=== PATIENT | female | born 1960 | race Caucasian/White ===

== ENCOUNTER 2025-01-31 09:36 | Outpatient (REF) | payer OTHER, SELFPAY | END 2025-01-31 09:37 | disposition home or self-care (01) | LOC: HO.LNP 09:36 | PROVIDERS: Visit Provider Obstetrics & Gynecology | DX: Z01.419 Encounter for gynecological examination (general) (routine) without abnormal findings (principal); Z11.51 Encounter for screening for human papillomavirus (HPV); N95.0 Postmenopausal bleeding; N64.4 Mastodynia; Z98.51 Tubal ligation status | CPT/HCPCS: 87626; 88175; 99202 ==

== ENCOUNTER 2025-01-31 09:36 | Outpatient (AMB) | payer OTHER, SELFPAY ==
[2025-01-31 09:40] VITALS: BP 102/70; BMI 25.4
--- NOTE | 2025-01-31 09:40 | A.OFFVIS_ITS ---
Vital Signs 01/31/25 09:40 Height 5 ft 2 in Weight 139 lb BMI 25.4 BP 102/70 Intake Visit Reasons: PMB Intake Note: patient experiencing breast pain Property Supervisor Required: No Business Representative: Business Representative Present (christina/ paty) Accompanied by: Family/Other Allergies Penicillins (PENICILLINS) Allergy (Severe, Verified 01/31/25 09:41) ORAL SWELLING codeine (CODEINE) Allergy (Intermediate, Verified 01/31/25 09:41) VOMITING HPI Comments Details: Presenting complaining of few episodes of postmenopausal spotting asked 1 0 six- month ago in addition the patient is complaining of right breast pain, no additional concerns. Last Pap smear was few years ago no records available according to patient was negative Last mammogram was in 2022 according to patient was negative, room records available [facility] Medical History Arthritis Pancreatitis COPD (chronic obstructive pulmonary disease) Surgical History History of tubal ligation Hx of tonsillectomy Family History Sister Hypertension Mother Hypertension Pancreatic cancer Father Throat cancer Lung cancer Brother Throat cancer Social History Household Members: Other Household Members Other:: roomate Housing: Apartment Alcohol intake: current Comment: 2/3 glasses of wine a month Patient Tobacco Use Status: Former Tobacco user Female Reproductive History Menstrual Age of Menarche: 15 Review of Systems Const All systems reviewed & are unremarkable except as noted in HPI and below Card Reports as per HPI Resp Reports as per HPI GI Reports as per HPI and Reports no additional complaints Reports as per HPI Physical Exam Vital Signs: Last Vital Signs BP 102/70 01/31/25 09:40 BMI result Body Mass Index 25.4 Const General: cooperative, healthy appearing and comfortable Chest Chest palpation & inspection: normal inspection of the chest and normal palpation of entire chest wall Breast/axilla inspection: normal inspection of the breasts and normal inspection of the axillae Breast/axilla palpation: normal palpation of the breasts (Left breast within normal, right breast 10:00 5 cm from the nipple tender), normal palpation of the axillae and no axillary lymphadenopathy Resp Effort & Inspection: normal respiratory effort Auscultation: clear to auscultation bilaterally Percussion: percussion normal Cardio Palpation: normal PMI Rate: regular rate Rhythm: regular rhythm Heart sounds: no murmurs and no rubs Peripheral pulses: Peripheral pulses 2+ throughout GI Inspection: Yes normal to inspection Palpation (GI): Soft to palpation, nontender, no guarding, not rigid and No hepatosplenomegaly present Percussion: Yes normal to percussion Auscultation: normal bowel sounds Rectal Exam - Female: deferred General: Yes bladder normal to palpation External Female Exam: No lesion Speculum Exam - Vagina: normal appearance of the vagina, normal palpation, normal vaginal discharge and not erythematous Speculum Exam - Cervix: normal appearance of the cervix and normal palpation Bimanual exam- vagina & uterus: normal bimanual exam, normal palpation, uterine size normal, bladder normal to palpation, consistency normal and normal palpation Bimanual Exam- Adnexa, other: normal adnexae, no masses and no tenderness Assessment & Plan Assessment & Plan (1) Postmenopausal bleeding: Code(s): N95.0 - Postmenopausal bleeding Category: Medical Plan: Discussed with the patient the differential diagnosis of post menopausal bleeding with normal pelvic exam including but not limited to, endometrial hyperplasia, cancer, polyps and other causes; recommended ultrasound to measure the endometrial stripe; discussed with the patient that if the endometrial thickness is 4 mm or less the negative predictive value of endometrial pathology is 99%, otherwise If endometrial thickness is more than 4 mm will proceed with endometrial sampling versus hysteroscopy D&C polypectomy depending on the ultrasound findings. Instructed the patient to schedule an ultrasound with a follow-up appointment in 2 weeks. All questions answered, the patient verbalized understanding and agreed with the plan. This note was generated with a voice recognition program. Some errors may have been overlooked during the review of this note. Sometimes these errors may affect the content or meaning of a given sentence. (2) Breast pain, right: Comment: right breast 10:00, 5 cm from the nipple tender Code(s): N64.4 - Mastodynia Category: Medical Plan: Discussed with the patient the finding on Breast exam (breast tenderness at 10:00, 5 cm from the nipple) .The differential diagnosis includes but not limited to lump/cyst/pre cancer/cancer or dense breast tissue. The work up includes right breast US and bilateral diagnostic mammogram and referred the patient for surgical breast consult. Orders: Orders MM tomosynthesis diagnostic BI Today N64.4 - Mastodynia Pap Smear Today Z01.419 - Encounter for gynecological examination (general) (routine) without abnormal findings US breast RT limited Today N64.4 - Mastodynia HPV High risk Today Z01.419 - Encounter for gynecological examination (general) (routine) without abnormal findings US pelvic and transvaginal Today N95.0 - Postmenopausal bleeding Referrals General Surgery Referral N64.4 - Mastodynia Coding Level of Care Code New Pt Level 3 (09018) Diagnoses Postmenopausal bleeding N95.0 Breast pain, right N64.4
--- OUTSIDE RECORDS SUMMARY | 2025-01-31 10:11 | XMS_ITS ---
Author Name [facility] Organization Unknown Care Team Organization Name Specialty Phone Email Start Date End Da te [facility] Primary Care 10/21/2022 02/02/2024 [facility] Y[facility] Primary Care 04/23/2022 02/02/2024
--- OUTSIDE RECORDS SUMMARY | 2025-01-31 10:12 | XMS_ITS | Clinical Summary ---
Author Organization [address] Address [address] [place] [phone] Phone Care Team Providers Care Sword Swallower Name Role Phone Eduardo Smith MD Primary Care Provider Allergies Active Allergy Reactions Criticality Noted Date Comments Codeine 02/12/2016 Up set stomach Penicillin G 02/12/2016 Tongue swelling Medications cholecalciferol (VITAMIN D-3) 25 mcg (1,000 unit) capsule Take by mouth daily. 3 tabs Active cyanocobalamin (VITAMIN B-12) 100 mcg tablet Take 0.5 tablets (50 mcg total) by mouth 1 (one) time each day. Active buPROPion (ZYBAN) 150 mg 12 hr tablet Take 1 tablet (150 mg total) by mouth 2 (two) times a day. Do not crush, chew, or split. 60 each 2 05/10/20 24 Active umeclidinium-vilan teroL (ANORO ELLIPTA) 62.5-25 mcg/actuation inhaler Inhale 1 puff by mouth 1 (one) time each day. 1 each 11 05/10/20 24 Active ondansetron ODT (ZOFRAN-ODT) 8 mg disintegrating tablet Dissolve 1 tablet (8 mg total) on top of the tongue every 8 (eight) hours if needed for nausea or vomiting. 30 tablet 3 05/10/20 24 Active albuterol HFA (PROAIR HFA ; PROVENTIL HFA ; VENTOLIN HFA) 90 mcg/actuation inhalerIndications :Routine general medical examination at a health care facility,Encounter for screening mammogram for malignant neoplasm of breast,Arthritis,C hronic obstructive pulmonary disease, unspecified COPD type (CMS/HCC V24, CMS/HCC V28),Tobacco use disorder,Seizure disorder ([facility] V24, [facility] V28),Secondary hypertension,Anemi a, unspecified type,Depression, unspecified depression type,Nausea Inhale 2 puffs by mouth every 4 (four) hours if needed for wheezing. 6.7 g 11 05/10/20 24 Active atorvastatin (LIPITOR) 20 mg tablet Take 1 tablet (20 mg total) by mouth 1 (one) time each day. 30 each 07/07/19 026 Active ibuprofen (ADVIL,MOTRIN) 800 mg tablet TAKE 1 TABLET BY MOUTH THREE TIMES A DAY NEEDED FOR MILD PAIN 90 tablet 1 01/26/20 25 Active ibuprofen (ADVIL,MOTRIN) 800 mg tablet Take 1 tablet (800 mg total) by mouth 3 (three) times a day if needed for mild pain (pain). 90 tablet 5 05/10/20 24 025 Discontinued Active Problems Problem Noted Date Diagnosed Date Alcohol abuse 04/08/2018 GERD (gastroesophageal reflux disease) 8 HTN (hypertension) 04/08/2018 Seizure disorder ([facility] V24, [facility] V28) 03/17 Anemia 05/19/2015 Chronic back pain 05/19/2015 COPD (chronic obstructive pu lmonary disease) ([facility] V24, [facility] V28) 05/19/2015 Depression 05/19/2015 Tobacco use disorder 05/19/2015 Surgical History Surgery Date Site/Laterality Comments OTHER SURGICAL HISTORY 2007 PROCEDURE: [place] UNLISTED PROCEDURE NECK/THORAX; COMMENT: cervical spine - plate (Dr. Rich) ANKLE GANGLION CYST EXCISION TUBAL LIGATION Medical History Medical History Date Comments Chronic back pain 05/19/2015 DX:Chronic bairon k pain Depression 05/19/2015 DX:Depression Tobacco use disorder 05/19/2015 DX:Tobacco use disorder Anemia 05/19/2015 DX:Anemia COPD (chronic obstructive pu lmonary disease) ([facility] V24, [facility] V28) 05/19/2015 DX:COPD (chronic o bstructive pulmonary disease) ([facility]) Alcohol abuse 04/08/2018 DX:Alcohol abuse GERD (gastroesophageal reflu x disease) 04/08/2018 DX:GERD (gastroesophageal re flux disease) Seizure disorder ([facility] V2 4, [facility] V28) 04/08/2018 DX:Seizure disorder (HCC) HTN (hypertension) 04/08/2018 DX:HTN (hyper tension) Family History Medical History Relation Name Comments Lung cancer Father Throat cancer Father Relation Name Status Comments Father Mother Social History Tobacco Use Types Packs/Day Years Used Date Smoking Tobacco: Every Day Cigarettes 0.5 40.7 Started: 05/10/1984 Smokeless Tobacco: Never Alcohol Use Standard Drinks/Week Comments Yes 0 (1 standard drink = 0.6 oz pur e alcohol) occ Comments Unknown Sex and Gender Information Value Date Recorded Sex Assigned at Not on file Legal Sex Female 1:50 AM EST Gender Identity Not on file Sexual Orientation Not on file Obstetrics History Last Filed Vital Signs Vital Sign Reading Time Taken Comments Blood Pressure 130/80 05/10/2024 3:06 PM EST Pulse 75 05/10/2024 3:06 PM EST Temperature 36.7 C (98.1 F) 05/10/2024 3:06 PM EST Respiratory Rate 14 05/10/2024 3:06 PM EST Oxygen Saturation - - Inhaled Oxygen Concentration - - Weight 55 kg (121 lb 3.2 oz) 05/10/2024 3:06 PM EST Height 157.5 cm (5' 2 ) 10/02/2021 11:23 AM EDT Body Mass Index 22.17 10/02/2021 11:23 AM EDT Plan of Treatment Health Maintenance Due Date Last Done Comments Breast Cancer Screening 1962 Hepatitis A Vaccines (1 of 2 - Risk 2-dose series) 1981 Pneumococcal Vaccine: 50+ Years (1 of 2 - PCV) 1981 Cervical Cancer Screening: Pap Smear 1983 HIV Screening 05/19/2022 Lung Cancer Screening (Low Dose CT) 05/19/2022 Social Influencers of Health Screening 05/19/2022 Depression Screening 06/16/2024 Hypertension/CHF/CAD Annual BMP Blood Test 05/10/2025 05/10/2024, 01/15/2019 Cholesterol Screening (Lipid Panel) 05/10/2029 05/10/2024, 01/15/2019 Hepatitis C Screening Completed 05/10/2024 , 04/08/2018 COVID-19 Vaccine Discontinued Colorectal Cancer Screening: Colonoscopy Discontinued DTaP,Tdap,and Td Vaccines Discontinued HIB Vaccines Aged Out No longer eligi ble based on patient's age to complete this topic HPV Vaccines Aged Out No longer eligi ble based on patient's age to complete this topic Hepatitis B Vaccines Aged Out No long er eligible based on patient's age to complete this topic IPV Vaccines Aged Out No longer eligi ble based on patient's age to complete this topic Influenza Vaccine Discontinued MMR Vaccines Aged Out No longer eligi ble based on patient's age to complete this topic Meningococcal ACWY Vaccine Aged Out N o longer eligible based on patient's age to complete this topic Meningococcal B Vaccine Aged Out No l onger eligible based on patient's age to complete this topic RSV Immunization Adult Patients Discontinued RSV Immunization Patients Under 20 months Aged Out No longer eligible based on patient's age to complete this topic Varicella Vaccines Aged Out No longer eligible based on patient's age to complete this topic Zoster Vaccines Discontinued Procedures Procedure Name Priority Date/Time Associated Diagnosis Comments HEPATITIS C ANTIBODY Routine 05/10/2024 3:57 PM EST Routine general medical examination at a health care facility Encounter for screening mammogram for malignant neoplasm of breast Arthritis Chronic obstructive pulmonary disease, unspecified COPD type (CMS/HCC V24, CMS/HCC V28) Tobacco use disorder Seizure disorder (CMS/HCC V24, CMS/HCC V28) Secondary hypertension Anemia, unspecified type Depression, unspecified depression type COMPREHENSIVE METABOLIC PANEL Routine 05/10/2024 3:57 PM EST Routine general medical examination at a health care facility Encounter for screening mammogram for malignant neoplasm of breast Arthritis Chronic obstructive pulmonary disease, unspecified COPD type (CMS/HCC V24, CMS/HCC V28) Tobacco use disorder Seizure disorder (CMS/HCC V24, CMS/HCC V28) Secondary hypertension Anemia, unspecified type Depression, unspecified depression type LIPID PANEL WITH REFLEX TO DIRECT LDL Routine 05/10/2024 3:57 PM EST Routine general medical examination at a health care facility Encounter for screening mammogram for malignant neoplasm of breast Arthritis Chronic obstructive pulmonary disease, unspecified COPD type (CMS/HCC V24, CMS/HCC V28) Tobacco use disorder Seizure disorder (CMS/HCC V24, CMS/HCC V28) Secondary hypertension Anemia, unspecified type Depression, unspecified depression type from Last 3 Months or Most Recently Relevant to Health Maintenance Results * Hepatitis C antibody (05/10/2024 3:57 PM EST) Hepatitis C Antibody Negative Negative LAB CHEMISTRY METHOD 05/10/2024 8:[address] [facility] Blood Venous blood specimen / Unknown Venipuncture / Unknown 05/10/2024 3:57 PM EST 05/10/2024 3:57 PM EST Jamey CONTRERAS LAB BLOOD ORDERABLES Carol l Result [facility] [address] [place] [address], [place] [phone] * (ABNORMAL) Lipid panel with reflex to direct LDL (05/10/2024 3:57 PM EST) Cholesterol 226(H) 0 - 200 mg/dL LAB CHEMISTRY METHOD 05/10/2024 8:[address] [facility] Triglycerides 102 0 - 150 mg/dL LAB CHEMISTRY METHOD 05/10/2024 8:[address] [facility] HDL 53 >=40 mg/dL LAB CHEMISTRY METHOD 05/10/2024 8:[address] [facility] LDL Calculated 153(H) 0 - 100 mg/dL LAB CHEMISTRY METHOD 05/10/2024 8:[address] [facility] VLDL Cholesterol Ronald 20.4 mg/dL LAB CHEMISTRY METHOD 05/10/2024 8:[address] [facility] Non HDL Chol. (LDL+VLDL) 173(H) <145 mg/dL LAB CHEMISTRY METHOD 05/10/2024 8:[address] [facility] Chol/HDL Ratio 4.3 0.0 - 4.4 LAB CHEMISTRY METHOD 05/10/2024 8:[address] [facility] Blood Venous blood specimen / Unknown Venipuncture / Unknown 05/10/2024 3:57 PM EST 05/10/2024 3:57 PM EST us Jamey CONTRERAS LAB BLOOD ORDERABLES Carol chacon Result [facility] [address] [place] [address], [place] [phone] * Comprehensive metabolic panel (05/10/2024 3:57 PM EST) Sodium 139 133 - 145 mmol/L LAB CHEMISTRY METHOD 05/10/2024 8:[address] [facility] Potassium 4.3 3.5 - 5.5 mmol/L LAB CHEMISTRY METHOD 05/10/2024 8:[address] [facility] Chloride 106 96 - 110 mmol/L LAB CHEMISTRY METHOD 05/10/2024 8:[address] [facility] CO2 26 21 - 32 mmol/L LAB CHEMISTRY METHOD 05/10/2024 8:[address] [facility] Anion Gap 7 3 - 11 LAB CHEMISTRY METHOD 05/10/2024 8:[address] [facility] Glucose 84 70 - 100 mg/dL LAB CHEMISTRY METHOD 05/10/2024 8:[address] [facility] BUN 19 5 - 25 mg/dL LAB CHEMISTRY METHOD 05/10/2024 8:[address] [facility] Creatinine 0.65 0.50 - 1.10 mg/dL LAB CHEMISTRY METHOD 05/10/2024 8:[address] [facility] eGFR 100 >=60 mL/min/1. 73m2 LAB CHEMISTRY METHOD 05/10/2024 8:[address] [facility] Comment:Calculation based on the Chronic Kidney Disease Epidemiology Collaboration (CKD-EPI) equation refit without adjustment for race. BUN/Creatinine Ratio 29.2 LAB CHEMISTRY METHOD 05/10/2024 8:[address] [facility] Calcium 10.2 8.5 - 10.5 mg/dL LAB CHEMISTRY METHOD 05/10/2024 8:[address] [facility] AST (SGOT) 18 10 - 42 unit/L LAB CHEMISTRY METHOD 05/10/2024 8:[address] [facility] ALT (SGPT) 17 10 - 60 unit/L LAB CHEMISTRY METHOD 05/10/2024 8:[address] [facility] Alkaline Phosphatase 91 42 - 121 unit/L LAB CHEMISTRY METHOD 05/10/2024 8:[address] [facility] Total Protein 7.6 6.0 - 8.0 g/dL LAB CHEMISTRY METHOD 05/10/2024 8:[address] [facility] Albumin 4.1 3.2 - 5.0 g/dL LAB CHEMISTRY METHOD 05/10/2024 8:[address] [facility] Total Bilirubin 0.3 0.0 - 1.4 mg/dL LAB CHEMISTRY METHOD 05/10/2024 8:[address] [facility] Blood Venous blood specimen / Unknown Venipuncture / Unknown 05/10/2024 3:57 PM EST 05/10/2024 3:57 PM EST Jamey CONTRERAS LAB BLOOD ORDERABLES Carol l Result [facility] [address] [place] [address], from Last 3 Months or Most Recently Relevant to Health Maintenance Insurance [facility] [employer] Care Teams Sword Swallower Relationship Specialty Start Date End Date Eduardo Smith MD [address] [place] [address] PCP - General 07/23/22
== END 2025-01-31 10:10 | disposition home or self-care (01) ==
PROVIDERS: Visit Provider Obstetrics & Gynecology
DX: N95.0 Postmenopausal bleeding (principal); N64.4 Mastodynia
CPT/HCPCS: 99203

== ENCOUNTER 2025-02-02 14:24 | Outpatient (REF) | payer OTHER, SELFPAY ==
--- NOTE | ~2025-02-02 | US_ITS ---
EXAMINATION: US PELVIS CLINICAL INFORMATION: Postmenopausal bleeding. COMPARISON: None available. TECHNIQUE: Ultrasound of the pelvis is performed using both transabdominal and transvaginal transducers along with Doppler. Transvaginal imaging is performed due to inadequate visualization transabdominally. FINDINGS: Uterus: The uterus is retroverted and measures 5.4 x 2.9 x 3.7 cm. The cervix has a normal appearance. The double wall endometrial thickness is 2 mm. It is uniform without irregularity. The uterus is smooth in contour and has mildly heterogeneous myometrial echogenicity. There is a ventral intramural lower uterine segment fibroid measuring 9 x 9 x 7 mm. Adnexa: Both ovaries are visualized. There is normal color flow to the adnexa. There is no ovarian torsion. There is no pelvic ascites or fluid collection. There are no adnexal masses. Right ovary measures 1.7 x 1.1 x 1.2 cm. Volume = 1.2 mL. Normal sonographic appearance. Left ovary measures 1.6 x 1.1 x 1.0 cm. Volume = 0.8 cm. Normal sonographic appearance. US/US pelvic and transvaginal IMPRESSION: 1. Retroverted uterus with normal 2 mm thickness endometrium. 2. There is a ventral lower uterine segment fibroid measuring 9 x 9 x 7 mm. 3. Normal ovaries bilaterally. Electronically signed by: Earnest Campbell MD 02/02/2025 03:15 PM EDT
--- OUTSIDE RECORDS SUMMARY | 2025-02-02 15:22 | XMS_ITS | Clinical Summary ---
Author Organization [address] Address [address] [place] [phone] Phone Care Team Providers Care Office Director Name Role Phone Eduardo Smith MD Primary [...] (CMS/HCC V24, CMS/HCC V28),Tobacco use disorder,Seizure disorder ([facility] V24, [facility] V28),Secondary hypertension,Anemi a, unspecified type,Depression, unspecified depression [...] disease) 8 HTN (hypertension) 04/08/2018 Seizure disorder ([facility] V24, [facility] V28) 03/17 Anemia 05/19/2015 Chronic back pain 05/19/2015 COPD (chronic obstructive pu lmonary disease) ([facility] V24, [facility] V28) 05/19/2015 Depression 05/19/2015 Tobacco use disorder 05/19/2015 Surgical History Surgery Date Site/Laterality Comments OTHER SURGICAL HISTORY 2007 PROCEDURE: [place] UNLISTED PROCEDURE NECK/THORAX; COMMENT: cervical spine - plate (Dr. Rich) ANKLE GANGLION CYST EXCISION TUBAL LIGATION Medical History Medical History Date Comments Chronic back pain 05/19/2015 DX:Chronic bairon k pain Depression 05/19/2015 DX:Depression Tobacco use disorder 05/19/2015 DX:Tobacco use disorder Anemia 05/19/2015 DX:Anemia COPD (chronic obstructive pu lmonary disease) ([facility] V24, [facility] V28) 05/19/2015 DX:COPD (chronic o bstructive pulmonary disease) ([facility]) Alcohol abuse 04/08/2018 DX:Alcohol abuse GERD (gastroesophageal reflu x disease) 04/08/2018 DX:GERD (gastroesophageal re flux disease) Seizure disorder ([facility] V2 4, [facility] V28) 04/08/2018 DX:Seizure disorder (HCC) HTN (hypertension) [...] Negative LAB CHEMISTRY METHOD 05/10/2024 8:25 PM [facility] Blood Venous blood specimen / Unknown Venipuncture / Unknown 05/10/2024 3:57 PM EST 05/10/2024 3:57 PM EST Jamey CONTRERAS LAB BLOOD ORDERABLES Carol l Result [facility] [address] [place] [address], [place] [phone] * (ABNORMAL) Lipid panel with reflex to direct LDL (05/10/2024 3:57 PM EST) Cholesterol 226(H) 0 - 200 mg/dL LAB CHEMISTRY METHOD 05/10/2024 8:02 PM [facility] Triglycerides 102 0 - 150 mg/dL LAB CHEMISTRY METHOD 05/10/2024 8:02 PM [facility] HDL 53 >=40 mg/dL LAB CHEMISTRY METHOD 05/10/2024 8:02 PM [facility] LDL Calculated 153(H) 0 - 100 mg/dL LAB CHEMISTRY METHOD 05/10/2024 8:02 PM [facility] VLDL Cholesterol Ronald 20.4 mg/dL LAB CHEMISTRY METHOD 05/10/2024 8:02 PM [facility] Non HDL Chol. (LDL+VLDL) 173(H) <145 mg/dL LAB CHEMISTRY METHOD 05/10/2024 8:02 PM [facility] Chol/HDL Ratio 4.3 0.0 - 4.4 LAB CHEMISTRY METHOD 05/10/2024 8:02 PM [facility] Blood Venous blood specimen / Unknown Venipuncture / Unknown 05/10/2024 3:57 PM EST 05/10/2024 3:57 PM EST us Jamey CONTRERAS LAB BLOOD ORDERABLES Carol chacon Result [facility] [address] [place] [address], [place] [phone] * Comprehensive metabolic panel (05/10/2024 3:57 PM EST) Sodium 139 133 - 145 mmol/L LAB CHEMISTRY METHOD 05/10/2024 8:02 PM [facility] Potassium 4.3 3.5 - 5.5 mmol/L LAB CHEMISTRY METHOD 05/10/2024 8:02 PM [facility] Chloride 106 96 - 110 mmol/L LAB CHEMISTRY METHOD 05/10/2024 8:02 PM [facility] CO2 26 21 - 32 mmol/L LAB CHEMISTRY METHOD 05/10/2024 8:02 PM [facility] Anion Gap 7 3 - 11 LAB CHEMISTRY METHOD 05/10/2024 8:02 PM [facility] Glucose 84 70 - 100 mg/dL LAB CHEMISTRY METHOD 05/10/2024 8:02 PM [facility] BUN 19 5 - 25 mg/dL LAB CHEMISTRY METHOD 05/10/2024 8:02 PM [facility] Creatinine 0.65 0.50 - 1.10 mg/dL LAB CHEMISTRY METHOD 05/10/2024 8:02 PM [facility] eGFR 100 >=60 mL/min/1. 73m2 LAB CHEMISTRY METHOD 05/10/2024 8:02 PM [facility] Comment:Calculation based on the Chronic Kidney Disease Epidemiology Collaboration (CKD-EPI) equation refit without adjustment for race. BUN/Creatinine Ratio 29.2 LAB CHEMISTRY METHOD 05/10/2024 8:02 PM [facility] Calcium 10.2 8.5 - 10.5 mg/dL LAB CHEMISTRY METHOD 05/10/2024 8:02 PM [facility] AST (SGOT) 18 10 - 42 unit/L LAB CHEMISTRY METHOD 05/10/2024 8:02 PM [facility] ALT (SGPT) 17 10 - 60 unit/L LAB CHEMISTRY METHOD 05/10/2024 8:02 PM [facility] Alkaline Phosphatase 91 42 - 121 unit/L LAB CHEMISTRY METHOD 05/10/2024 8:02 PM [facility] Total Protein 7.6 6.0 - 8.0 g/dL LAB CHEMISTRY METHOD 05/10/2024 8:02 PM [facility] Albumin 4.1 3.2 - 5.0 g/dL LAB CHEMISTRY METHOD 05/10/2024 8:02 PM [facility] Total Bilirubin 0.3 0.0 - 1.4 mg/dL LAB CHEMISTRY METHOD 05/10/2024 8:02 PM [facility] Blood Venous blood specimen / Unknown Venipuncture / Unknown 05/10/2024 3:57 PM EST 05/10/2024 3:57 PM EST Jamey CONTRERAS LAB BLOOD ORDERABLES Carol l Result [facility] [address] [place] [address], from Last 3 Months or Most Recently Relevant to Health Maintenance Insurance [facility] [employer] Care Teams Office Director Relationship Specialty Start Date End Date Eduardo Smith MD [address] [place] [address] PCP - General 07/23/22
== END 2025-02-02 14:25 | disposition home or self-care (01) ==
LOC: HO.HMGCX 14:24
PROVIDERS: Visit Provider Obstetrics & Gynecology
DX: N95.0 Postmenopausal bleeding (principal)
CPT/HCPCS: 76830; 76856

== ENCOUNTER → 2025-02-02 14:25 | Outpatient (BNV) | payer OTHER, SELFPAY | PROVIDERS: Visit Provider Radiology Diagnostic Radiology | DX: D25.1 Intramural leiomyoma of uterus (principal) | CPT/HCPCS: 76830; 76856 ==